=== PATIENT | female | born 1970 | race Asian ===

== ENCOUNTER 2017-05-16 23:15 | Emergency (ER) | payer MEDICAID, OTHER ==
[~2017-05-16] VITALS: Ht 152.4 cm; Wt 65.8 kg
[2017-05-16] MEDS ORDERED: diphenhdrAMINE HCL 50 MG/1 ML VL IV ONE (23:45)
[2017-05-16] MEDS ORDERED: methylPREDNISolone SOD SUCC 125 MG/2 ML VL IV ONE (23:45)
[2017-05-16] MEDS ORDERED: ACETAMINOPHEN 325 MG TAB PO ONE (23:45)
[2017-05-17] LABS: Basophils # (auto) 0.1 uL; Basophils % (auto) 0.4 % (0.0-2.0); Eosinophils # (auto) 0 uL; Hematocrit 43.1 % (36.0-46.0); Lymphocytes # (auto) 1.9 uL; Lymphocytes % (auto) 10.9 % (10.0-50.0); Mean Corpuscular Hemoglobin 31.6 pg (28.0-32.0); Mean Corpuscular Hgb Conc. 34.8 g/dL (32.0-36.0); Mean Corpuscular Volume 90.9 fL (80.0-100.0); Mean Platelet Volume 8.2 fL (6.9-10.8); Monocytes # (auto) 1.2 uL; Monocytes % (auto) 6.8 % (0.0-12.0); Neutrophils # (auto) 13.9 uL; Neutrophils % (auto) 81.9 % (37.0-80.0); Platelet Count (auto) 242 10^3/uL (140-450); Red Cell Distribution Width 12.1 % (11.8-14.3)
[2017-05-17] MEDS ORDERED: ALBUTEROL SULF 2.5 MG/0.5ML(0.5%) NEB SOLN NEB ONE (00:15)
[2017-05-17] MEDS ORDERED: IPRATROPIUM BROM 0.5 MG/2.5ML INH SOL NEB ONE (00:15)
[2017-05-17 00:31] LABS: Anion Gap 12 (5-15); Aspartate Aminotransferase 67 U/L (15-37); BUN/Creatinine Ratio 15.7; Blood Urea Nitrogen 11 mg/dL (7-18); Calcium 9.2 mg/dL (8.5-10.1); Carbon Dioxide 23 mmol/L (21-32); Chloride 101 mmol/L (98-107); GFR African American 116 mL/min; GFR Non-African American 96 mL/min; Glucose 119 mg/dL (74-106); Potassium 3.8 mmol/L (3.5-5.1); Sodium 136 mmol/L (136-145)
[2017-05-17 00:36] LABS: Alkaline Phosphatase 77 U/L (45-117); Bilirubin, Total 1.4 mg/dL (0.2-1.0); Total Protein 8.3 g/dL (6.4-8.2)
[2017-05-17 00:36] LABS: Urine Blood 3+ /uL (Negative); Urine Color PINK (Yellow); Urine Glucose Normal (Normal); Urine Ketone 3+ (Negative); Urine Mucus FEW (None Seen); Urine Nitrite Negative (Negative); Urine RBC 150 /hpf (0 - 4); Urine Squamous Epithelial Cell MOD /hpf (<5)
[2017-05-17 00:42] LABS: Urine Bilirubin POSITIVE (Negative)
[2017-05-17] MEDS ORDERED: EPINEPHrine HCL 1 MG/1 ML AMP SC ONE (02:15)
[2017-05-17] MEDS ORDERED: SODIUM CHLORIDE 0.9% 1,000 ML IV ONE (04:30)
[2017-05-17 04:53] VITALS: BP 100/59
== END 2017-05-17 05:29 | disposition home or self-care (01) ==
LOC: ER 23:28
DX: T78.3XXA Angioneurotic edema, initial encounter (principal); T78.40XA Allergy, unspecified, initial encounter; N39.0 Urinary tract infection, site not specified; E78.5 Hyperlipidemia, unspecified; Z90.49 Acquired absence of other specified parts of digestive tract; Z88.8 Allergy status to other drugs, medicaments and biological substances
CPT/HCPCS: 36415; 71010; 80053; 81001; 83605; 84484; 85025; 94640; 94761; 96372; 96374; 96375; 99285; J0171; J1200; J2930; 96361

== ENCOUNTER 2024-12-11 17:36 | Inpatient (IN) | payer MEDICAID ==
[~2024-12-11] VITALS: Ht 162.6 cm; Wt 70.2 kg
--- NOTE | 2024-12-11 17:50 | ECG ---
[facility] Test Date: 2024-12-11 Test Time: 17:45:58 Pat Name: BELLA BECK Department: ER Room: Gender: F [employer]: ER : 1970 Requested By: HARSH BRANTLEY Order Number: [id number] Reading MD: Dick Osorio Measurements Intervals [place] Rate: 84 P: 46 MN: 150 QRS: 20 QRSD: 96 T: 51 QT: 407 QTc: 482 Interpretive Statements Sinus rhythm Probable left atrial enlargement Electronically Signed On 12-11-2024 21:05:59 PDT by Dick Osorio Please click the below link to view image of tracing.
--- NOTE | 2024-12-11 18:03 | ED.PDOC ---
HPI Comments 54-year-old female with a history of dyslipidemia brought in by family complaining of chest pain intermittently for the past week. Patient states the pain is sharp, localizes it to the retrosternal area, states it radiates to the left shoulder and left neck, and last for a few sec per episode. She denies any associated shortness of breath, nausea, vomiting, diaphoresis or edema. Patient states when the pain began, she contacted her primary physician who advised her to go to the ER, however the pain subsided so she did not go in right away. She states the pain returned yesterday and has been stronger and intermittent since this morning. She denies any pain currently. Chief Complaint: Chest Pain Time Seen by MD: 17:50 Reviewed Notes: Nurses Notes Allergies: Coded Allergies: Atorvastatin (Verified Allergy, Unknown, 05/16/17) Home Meds Reported Medications Colesevelam Hydrochloride (Colesevelam Hydrochlori) 625 Mg Tab, 1 TAB PO BID 12/11/24 Information Source: Patient Mode of Arrival: Ambulatory Past Medical History PAST MEDICAL HISTORY: High Lipids Surgical History: Cholecystectomy STEWARD/STEWARDESS [facility]INING RO[facility] History: No Pertinent STEWARD/STEWARD[facility]INING ROOM History Family History Family History (Other): Mother has pacemaker Social History Smoker: Non-Smoker Alcohol: Denies ETOH Use Drugs: Denies Drug Use Lives In: Home All Other Systems: Reviewed and Negative (Comprehensive systems review obtained and negative except for what is stated in the HPI.) Physical Exam General Appearance: No Apparent Distress, Obese HEENT: Other (Pupils and face symmetric. Moist mucous membranes.) Neck: Full Range of Motion, Normal Inspection Respiratory: Lungs Clear, No Accessory Muscle Use, No Respiratory Distress, Normal Breath Sounds Cardiovascular: No Edema, No JVD, Regular Rate/Rhythm Breast Exam: Deferred Gastrointestinal: Non Tender, Soft Genitalia: Deferred Pelvic: Deferred Rectal: Deferred Extremities: Normal inspection, Normal range of motion, Non-tender, No pedal edema Neurologic: Alert (Oriented x4), Normal Affect, Normal Mood, Other (Ambulatory) Cerebellar Function: NOT DONE Reflexes: NOT DONE Skin: Dry, Normal Color, Warm Lymphatic: NOT DONE EKG EKG : Comments Sinus rhythm, rate 84, normal [place] and QRS intervals, QTC 482, normal axis, normal QRS, anteroseptal T inversion with other nonspecific T change. Was a procedure done? Was a procedure done?: No CP Differential Dx Differential Diagnosis: Angina, Anxiety / Panic Attack, Heart Failure, IN, Pulmonary Embolus Differential Diagnosis: Aortic dissection, Chest Wall Pain, Costochondritis, Esophageal reflux/spasm, Gastritis, Pericarditis, Pneumonia X-Ray, Labs, Meds, VS Vital Signs Date Time Temp Pulse Resp B/P (MAP) Pulse Ox O2 Delivery O2 Flow Rate FiO2 12/11/24 22:13 97.7 81 20 121/68 (85) 97 97.7 12/11/24 20:23 77 16 93 Room Air 12/11/24 20:23 98.5 77 16 106/58 (74) 93 98.5 12/11/24 20:16 106/58 12/11/24 18:30 85 14 99 Room Air* 0 21 12/11/24 18:29 129/60 12/11/24 18:23 98.4 85 14 129/60 (83) 99 98.4 12/11/24 17:58 99.5 84 17 152/69 (96) 96 99.5 12/11/24 17:45 84 Lab Test 12/11/24 19:30 12/11/24 18:51 12/11/24 17:52 Range/Units Urine Color Light-yellow Yellow Urine Clarity Clear Clear Urine pH 6.0 5.0-9.0 Urine Specific [place] 1.020 1.001-1.035 Urine Protein Negative Negative Urine Ketones Negative Negative Urine Blood Negative Negative /uL Urine Nitrite Negative Negative Urine Bilirubin Negative Negative Urine Urobilinogen Normal Negative mg/dL Urine Leukocyte Esterase Negative Negative /uL Urine RBC 1 0 - 4 /hpf Urine Microscopic WBC 3 0-5 /HPF Urine Squamous Epithelial Cells Few <5 /hpf Urine Bacteria Few H None Seen /hpf Urine Glucose Normal Normal mg/dL Urine Test Negative Negative Troponin I High Sensitivity < 3 L < 3 L </=34 ng/L White Blood Count 5.2 4.4-10.8 10^3/uL Red Blood Count 4.76 4.0-5.20 10^6/uL Hemoglobin 15.0 12.2-16.2 g/dL Hematocrit 43.1 36.0-46.0 % Mean Corpuscular Volume 90.6 80.0-100.0 fL Mean Corpuscular Hemoglobin 31.5 28.0-32.0 pg Mean Corpuscular Hemoglobin Concent 34.7 32.0-36.0 g/dL Red Cell Distribution Width 12.3 11.8-14.3 % Platelet Count 276 140-450 10^3/uL Mean Platelet Volume 8.3 6.9-10.8 fL Neutrophils (%) (Auto) 35.8 L 37.0-80.0 % Lymphocytes (%) (Auto) 52.0 H 10.0-50.0 % Monocytes (%) (Auto) 8.9 0.0-12.0 % Eosinophils (%) (Auto) 2.5 0.0-7.0 % Basophils (%) (Auto) 0.8 0.0-2.0 % Neutrophils # (Auto) 1.8 1.6-8.6 10 ^3/uL Lymphocytes # (Auto) 2.7 0.4-5.4 10 ^3/uL Monocytes # (Auto) 0.5 0-1.3 10 ^3/uL Eosinophils # (Auto) 0.1 0-0.8 10 ^3/uL Basophils # (Auto) 0 0-0.2 10 ^3/uL Nucleated Red Blood Cells 0.1 % Sodium Level 138 136-145 mmol/L Potassium Level 3.8 3.5-5.1 mmol/L Chloride Level 100 98-107 mmol/L Carbon Dioxide Level 24 20-31 mmol/L Anion Gap 14 5-15 Blood Urea Nitrogen 10 9-23 mg/dL Creatinine 0.60 0.550-1.02 mg/dL Glomerular Filtration Rate Calc 107 >90 mL/min BUN/Creatinine Ratio 16.7 10.0-20.0 Serum Glucose 120 H 74-106 mg/dL Calcium Level 10.3 8.7-10.4 mg/dL Total Bilirubin 0.6 0.2-1.0 mg/dL Aspartate Amino Transferase (AST) 48 H 13-40 U/L Alanine Aminotransferase (ALT) 85 H 7-40 U/L Alkaline Phosphatase 70 46-116 U/L B-Type Natriuretic Peptide 8.23 0-100 pg/mL Total Protein 7.8 5.7-8.2 g/dL Albumin 5.0 H 3.2-4.8 g/dL Current Medications Medications (Trade) Dose Ordered Sig/Christine Route Start Time Stop Time Status Last Admin Aspirin 325 mg ONCE ONCE PO 12/11/24 18:00 12/11/24 18:01 DC 12/11/24 18:29 Nitroglycerin (Nitrodur 0.2MG/ Hr) 1 patch ONCE ONCE TD 12/11/24 18:00 12/11/24 18:01 DC 12/11/24 18:29 PROCEDURE(s): CXRP - CHEST PORTABLE REASON: cp ORDER NUMBER(s): [id number], ACCESSION NUMBER(s): [id number] CHEST RADIOGRAPH Indication: cp Technique: Single frontal view of the chest was obtained Comparison: None FINDINGS: Lines and Tubes: None Lungs: Clear Pleura: No effusion. No pneumothorax. Cardiomediastinal contours: Unremarkable Bones: Unremarkable IMPRESSION: Clear lungs. X-Ray, Labs, Meds, VS Comment 54-year-old female with a history of dyslipidemia presenting with chest pain intermittently for a week Vitals remarkable for elevated blood pressure Exam unremarkable Rhythm strip independently interpreted by me: Sinus rhythm, rate 84, no ectopy. Chest x-ray IMPRESSION: Clear lungs. CBC, CMP, BNP, 2 serial troponins and UA unremarkable Patient treated with the following in the ED: Aspirin 325 mg p.o., nitro patch 0.2 mg chest wall On re-evaluation, patient has not had further chest pain in the ED. Vitals were stable. Heart score is 5. Plan is to admit the patient for ongoing serial troponins and Cardiology evaluation. Time of 1ST Reevaluation: 19:00 Reevaluation 1ST: Improved Patient Education/Counseling: Diagnosis, Treatment, Need For Follow Up Family Education/Counseling: No Family Present Departure 1 Departure Time of Disposition: 20:00 Impression: Primary Impression: Chest pain with high risk for cardiac etiology Disposition: 09 ADMITTED INPATIENT Admit to: Tele Condition: Guarded Critical Care Note Critical Care Time?: No Stability Stability form required: No Heart Score Heart Score: Heart Score Response (Comments) Value History Highly Suspicious 2 EKG Repolarization Disturb 1 Age 45-64 1 Risk Factors 1 or 2 risk factors 1 Troponin Normal limit 0 Total 5 CHEYENNE MARION MD December 11, 2024 18:03
[2024-12-11 18:09] LABS: Basophils # (auto) 0 10 ^3/uL (0-0.2); Basophils % (auto) 0.8 % (0.0-2.0); Eosinophils # (auto) 0.1 10 ^3/uL (0-0.8); Eosinophils % (auto) 2.5 % (0.0-7.0); Hematocrit 43.1 % (36.0-46.0); Lymphocytes # (auto) 2.7 10 ^3/uL (0.4-5.4); Mean Corpuscular Hemoglobin 31.5 pg (28.0-32.0); Mean Corpuscular Hgb Conc. 34.7 g/dL (32.0-36.0); Mean Corpuscular Volume 90.6 fL (80.0-100.0); Monocytes # (auto) 0.5 10 ^3/uL (0-1.3); Monocytes % (auto) 8.9 % (0.0-12.0); Neutrophils # (auto) 1.8 10 ^3/uL (1.6-8.6); Neutrophils % (auto) 35.8 % (37.0-80.0); Nucleated Red Blood Cells % 0.1 %; Platelet Count (auto) 276 10^3/uL (140-450); Red Blood Cells 4.76 10^6/uL (4.0-5.20); Red Cell Distribution Width 12.3 % (11.8-14.3); White Blood Cell 5.2 10^3/uL (4.4-10.8)
[2024-12-11 18:24] LABS: Alkaline Phosphatase 70 U/L (46-116); Anion Gap 14 (5-15); BUN/Creatinine Ratio 16.7 (10.0-20.0); Blood Urea Nitrogen 10 mg/dL (9-23); Calcium 10.3 mg/dL (8.7-10.4); Carbon Dioxide 24 mmol/L (20-31); Chloride 100 mmol/L (98-107); Potassium 3.8 mmol/L (3.5-5.1); Sodium 138 mmol/L (136-145); Total Protein 7.8 g/dL (5.7-8.2)
[2024-12-11 18:25] LABS: Alanine Aminotransferase 85 U/L (7-40); Aspartate Aminotransferase 48 U/L (13-40); Bilirubin, Total 0.6 mg/dL (0.2-1.0); Glucose 120 mg/dL (74-106)
[2024-12-11] MEDS: NITROGLYCERIN 0.2MG/HR TOPICAL PATCH TD ONE (18:29)
[2024-12-11] MEDS: ASPirin 325 MG TAB PO ONE (18:29)
[2024-12-11 18:30] VITALS: PULSE 85; RESP 14; O2SAT 99
[2024-12-11 19:56] LABS: Urine Bacteria FEW /hpf (None Seen); Urine Blood Negative /uL (Negative); Urine Clarity Clear (Clear); Urine Color Light-Yellow (Yellow); Urine Protein, UAD Negative (Negative); Urine Squamous Epithelial Cell FEW /hpf (<5); Urine Urobilinogen Normal (Negative); Urine WBC 3 /HPF (0-5)
[2024-12-11] MEDS: SODIUM CHLORIDE 0.9% 1,000 ML IV SCH (21:30)
[2024-12-11] MEDS ORDERED: ONDANSETRON HCL 4 MG/2 ML VIAL IV PRN (21:30)
[2024-12-11] MEDS ORDERED: HYDROcodone-ACET 5/325MG TAB PO PRN (21:30)
[2024-12-11] MEDS ORDERED: DOCUSATE SOD 100 MG CAP PO PRN (21:30)
--- NOTE | 2024-12-11 22:13 | DVH ---
CHEST RADIOGRAPH Indication: cp Technique: Single frontal view of the chest was obtained Comparison: None FINDINGS: Lines and Tubes: None Lungs: Clear Pleura: No effusion. No pneumothorax. Cardiomediastinal contours: Unremarkable Bones: Unremarkable IMPRESSION: Clear lungs.
--- NOTE | 2024-12-11 22:39 | DVHHP2 ---
History of Present Illness Reason for Visit: Chest pain History of Present Illness The patient is a 54-year-old female with past medical history of hyperlipidemia who presented to [facility] ED with complaint of chest pain. Patient reports symptoms progressively get worse with localized substernal chest pain, sharp in nature, rating 7/10 numeric scale, associated shortness of breath, nausea, vomiting, diaphoresis, getting worse that prompted this visit. Patient was seen and evaluated in the ED, laboratory data shows WBC 5.2, platelets 276, sodium 138, potassium 3.8, BUN 10, creatinine 0.60, glucose 120, AST 48, ALT 85, BNP 8.23, albumin 5.0, troponin < 3. Please see medication orders section in the computer. On my assessment, patient denied chest pain at this moment, no headache, no dizziness, currently on oxygen, no nausea or vomiting at this moment, no fever, no chills. Patient was admitted for further evaluation and medical management. Past Medical History High Lipids Past Surgical History Cholecystectomy Family History Reviewed, noncontributory to the management of this case. Past Social History The patient lives at home, denies smoking, alcohol or illicit drugs abuse. Review of Systems Constitutional: No: Fever, Chills, Sweats, Weakness, Malaise, Other Eyes: No: Pain, Vision change, Conjunctivae inflammation, Eyelid inflammation, Other, Redness ENT: No: Ear pain, Ear discharge, Nose pain, Nose discharge, Nose congestion, Mouth pain, Mouth swelling, Throat pain, Throat swelling, Other Respiratory: Shortness of breath; No: Cough, Dry, SOB with excertion, Wheezing, Hemoptysis, Pleuritic Pain, Sputum, Wheezing, Other Cardiovascular: Chest Pain; No: Palpitations, Orthopnea, Paroxysmal Noc. Dyspnea, Edema, Lt Headedness, Other Gastrointestinal: Nausea, Vomiting; No: Abdominal Pain, Diarrhea, Constipation, Melena, Hematochezia, Other Genitourinary: No Dysuria, No Frequency, No Incontinence, No Hematuria, No Retention, No Other Musculoskeletal: No: other, neck pain, shoulder pain, arm pain, back pain, hand pain, leg pain, foot pain Skin: No: Rash, Lesions, Jaundice, Bruising, Other Neurological: No: Weakness, Numbness, Incoordination, Change in speech, Confusion, Seizures, Other Allergies: Coded Allergies: Atorvastatin (Verified Allergy, Unknown, 05/16/17) Medications Current Medications Medications Dose Ordered Sig/Christine Route Start Time Stop Time Status Last Admin Dose Admin Sodium Chloride 1,000 ml @ 60 mls/hr [id number] IV 12/11/24 21:30 Acetaminophen/ Hydrocodone Bitart 1 tab Q4HP PRN PO 12/11/24 21:30 Ondansetron HCl 4 mg Q4HP PRN IV 12/11/24 21:30 Docusate Sodium 100 mg BIDPRN PRN PO 12/11/24 21:30 Acetaminophen 650 mg Q6HP PRN PO 12/11/24 21:30 Exam Vital Signs Vital Signs Date Time Temp Pulse Resp B/P (MAP) Pulse Ox O2 Delivery O2 Flow Rate FiO2 12/11/24 22:13 97.7 81 20 121/68 (85) 97 97.7 12/11/24 20:23 Room Air 12/11/24 18:30 0 21 General Appearance: Alert, Oriented X3, Cooperative, No acute distress HEENT: Atraumatic, PERRLA, EOMI, Mucous membr. moist/pink Respiratory: Clear to auscultation, Normal air movement Cardiovascular: Regular rate, Normal S1, Normal S2, No murmurs Abdominal: Normal bowel sounds, Soft, No tenderness, No hepatospenomegaly, No masses Extremities: No clubbing, No cyanosis, No edema, Normal pulses, No tenderness /swelling Skin: No rashes, No breakdown, No significant lesion Neuro: Normal gait, Normal speech, Strength at 5/5 X4 ext, Normal tone, Sensation intact, Cranial nerves 3-12 NL, Reflexes 2+ Psych/Mental Status: Mental status NL, Mood NL Labs/Xrays Labs Test 12/11/24 19:30 12/11/24 18:51 12/11/24 17:52 Range/Units Urine Color Light-yellow Yellow Urine Clarity Clear Clear Urine pH 6.0 5.0-9.0 Urine Specific [place] 1.020 1.001-1.035 Urine Protein Negative Negative Urine Ketones Negative Negative Urine Blood Negative Negative /uL Urine Nitrite Negative Negative Urine Bilirubin Negative Negative Urine Urobilinogen Normal Negative mg/dL Urine Leukocyte Esterase Negative Negative /uL Urine RBC 1 0 - 4 /hpf Urine Microscopic WBC 3 0-5 /HPF Urine Squamous Epithelial Cells Few <5 /hpf Urine Bacteria Few H None Seen /hpf Urine Glucose Normal Normal mg/dL Urine Test Negative Negative Troponin I High Sensitivity < 3 L </=34 ng/L White Blood Count 5.2 4.4-10.8 10^3/uL Red Blood Count 4.76 4.0-5.20 10^6/uL Hemoglobin 15.0 12.2-16.2 g/dL Hematocrit 43.1 36.0-46.0 % Mean Corpuscular Volume 90.6 80.0-100.0 fL Mean Corpuscular Hemoglobin 31.5 28.0-32.0 pg Mean Corpuscular Hemoglobin Concent 34.7 32.0-36.0 g/dL Red Cell Distribution Width 12.3 11.8-14.3 % Platelet Count 276 140-450 10^3/uL Mean Platelet Volume 8.3 6.9-10.8 fL Neutrophils (%) (Auto) 35.8 L 37.0-80.0 % Lymphocytes (%) (Auto) 52.0 H 10.0-50.0 % Monocytes (%) (Auto) 8.9 0.0-12.0 % Eosinophils (%) (Auto) 2.5 0.0-7.0 % Basophils (%) (Auto) 0.8 0.0-2.0 % Neutrophils # (Auto) 1.8 1.6-8.6 10 ^3/uL Lymphocytes # (Auto) 2.7 0.4-5.4 10 ^3/uL Monocytes # (Auto) 0.5 0-1.3 10 ^3/uL Eosinophils # (Auto) 0.1 0-0.8 10 ^3/uL Basophils # (Auto) 0 0-0.2 10 ^3/uL Nucleated Red Blood Cells 0.1 % Sodium Level 138 136-145 mmol/L Potassium Level 3.8 3.5-5.1 mmol/L Chloride Level 100 98-107 mmol/L Carbon Dioxide Level 24 20-31 mmol/L Anion Gap 14 5-15 Blood Urea Nitrogen 10 9-23 mg/dL Creatinine 0.60 0.550-1.02 mg/dL Glomerular Filtration Rate Calc 107 >90 mL/min BUN/Creatinine Ratio 16.7 10.0-20.0 Serum Glucose 120 H 74-106 mg/dL Calcium Level 10.3 8.7-10.4 mg/dL Total Bilirubin 0.6 0.2-1.0 mg/dL Aspartate Amino Transferase (AST) 48 H 13-40 U/L Alanine Aminotransferase (ALT) 85 H 7-40 U/L Alkaline Phosphatase 70 46-116 U/L B-Type Natriuretic Peptide 8.23 0-100 pg/mL Total Protein 7.8 5.7-8.2 g/dL Albumin 5.0 H 3.2-4.8 g/dL PATIENT: BELLA BECK ACCT: [id number] UNIT: [id number] : 1970 LOC: ER ROOM / BED: / AGE / SEX: 54 / F ADM STATUS: REG ER SERVICE [id number] ORDERING PHYSICIAN: CHEYENNE MARION MD PROCEDURE(s): CXRP - CHEST PORTABLE REASON: cp ORDER NUMBER(s): [id number], ACCESSION NUMBER(s): [id number] CHEST RADIOGRAPH Indication: cp Technique: Single frontal view of the chest was obtained Comparison: None FINDINGS: Lines and Tubes: None Lungs: Clear Pleura: No effusion. No pneumothorax. Cardiomediastinal contours: Unremarkable Bones: Unremarkable IMPRESSION: Clear lungs. Assessment/Plan Assessment/Plan Chest pain with high risk for cardiac etiology Elevated liver enzymes Plan 1. Admit to telemetry unit 2. Breathing treatment 3. Pain control management 4. Management of fluids and electrolytes 5. Consultation for hospitalist 6. Diagnostic tests chest x-ray 7. DVT prophylaxis-on SCDs 8. Repeat labs CBC, CMP in a.m. 9. Continue with current medical management 10. Treatment plan discussed with patient and RN. Patient verbalized understanding. Plan discussed with: Patient, Other (RN) My Orders Orders - KEYANNA FRIEND DNP Procedure Category Date Status Time Allergies ELVER 12/11/24 In Process 21:19 Code Status CODE 12/11/24 Transmitted 21:19 Sodium Chloride 0.9% PHA 12/11/24 In Process 21:30 Oxygen Per Hour RT 12/11/24 Transmitted 21:19 Hydrocodone-Acet PHA 12/11/24 In Process 5/325mg Tab ([place] 21:30 Ondansetron Hcl PHA 12/11/24 In Process (Zofran) 21:30 Docusate Sodium PHA 12/11/24 In Process Capsule (Colace 21:30 Complete Blood Count LAB 12/12/24 Verified 04:00 Comprehensive LAB 12/12/24 Verified Metabolic Panel 04:00 Cardiac DIET 12/12/24 Transmitted Diet-2gna,Lofat,Lochol Breakfast Condition: Serious ELVER 12/11/24 In Process 21:19 Acetaminophen Tablet PHA 12/11/24 In Process (Tylenol Tablet) 21:30 Bedrest With Bathroom ELVER 12/11/24 In Process Privileg 21:19 Sequential ELVER 12/11/24 In Process Compression Device Admit ADMIT 12/11/24 Verified 22:[address] [facility] 12/11/24 Verified Sublingual (Ntrostat 22:45 Morphine Sulfate PHA 12/11/24 Verified Injection 22:45 Stat Ekg For Chest [facility] 12/11/24 Verified Pain 22:38 Notify Md Of Changes [facility] 12/11/24 Verified From Base 22:38 Work Order Detailer For [facility] 12/11/24 Verified 24 Hours 22:38 Emergency Dysrhythmia [facility] 12/11/24 Verified Protocol 22:38 Rhythm Strips Once [facility] 12/11/24 Verified Every Shift 22:38 Oxygen By Nasal RT 12/11/24 Verified Cannula 22:38 Problem List: (1) Chest pain with high risk for cardiac etiology (2) Elevated liver enzymes Date of Service: December 11, 2024 Billing Provider: KEYANNA FRIEND DNP Common Visit Codes: [id number] INP/OBS CARE (HIGH) KEYANNA FRIEND DNP December 11, 2024 22:39
[2024-12-11] MEDS ORDERED: NITROGLYCERIN 0.4 MG SL TAB SL PRN (22:45)
[2024-12-11] MEDS ORDERED: MORPHINE SULFATE INJ 2 MG/ml SYRG IV PRN (22:45)
[2024-12-11] MEDS ORDERED: COLE625T12 PO (22:50)
[2024-12-11 23:00] VITALS: PULSE 73; RESP 15; O2SAT 95
[2024-12-12 02:17] VITALS: BP 119/67; PULSE 67; PULSE 68; RESP 18; TEMP 97.6; O2SAT 97
[2024-12-12] MEDS: ACETAMINOPHEN 325 MG TAB PO PRN (02:41)
[2024-12-12 05:00] VITALS: BP 120/65; PULSE 73; RESP 18; TEMP 97.5; O2SAT 96
[2024-12-12 08:00] VITALS: PULSE 70
[2024-12-12] MEDS ORDERED: METH50006 PO (08:00)
[2024-12-12] MEDS ORDERED: CHOL100067 PO (08:04)
[2024-12-12] MEDS ORDERED: MAGN200T PO (08:04)
[2024-12-12] MEDS ORDERED: OMEG-20 PO (08:04)
[2024-12-12] MEDS ORDERED: [UNRECOGNIZED DRUG - CODE] PO (08:05)
[2024-12-12 08:50] VITALS: BP_SYST 120; BP_SYST 154; BP_DIAS 78; BP_DIAS 94; PULSE 77; PULSE 92; RESP 20; TEMP 97.9; TEMP 98.6; O2SAT 95; O2SAT 96
[2024-12-12 09:17] LABS: Basophils # (auto) 0 10 ^3/uL (0-0.2); Basophils % (auto) 0.5 % (0.0-2.0); Eosinophils # (auto) 0.1 10 ^3/uL (0-0.8); Eosinophils % (auto) 2.6 % (0.0-7.0); Hematocrit 41.3 % (36.0-46.0); Hemoglobin 14.5 g/dL (12.2-16.2); Lymphocytes # (auto) 2.3 10 ^3/uL (0.4-5.4); Lymphocytes % (auto) 42.8 % (10.0-50.0); Mean Corpuscular Hemoglobin 31.8 pg (28.0-32.0); Mean Corpuscular Hgb Conc. 35.1 g/dL (32.0-36.0); Mean Corpuscular Volume 90.5 fL (80.0-100.0); Monocytes # (auto) 0.5 10 ^3/uL (0-1.3); Monocytes % (auto) 9.7 % (0.0-12.0); Neutrophils # (auto) 2.4 10 ^3/uL (1.6-8.6); Neutrophils % (auto) 44.4 % (37.0-80.0); Platelet Count (auto) 267 10^3/uL (140-450); Red Blood Cells 4.56 10^6/uL (4.0-5.20); Red Cell Distribution Width 12.5 % (11.8-14.3); White Blood Cell 5.5 10^3/uL (4.4-10.8)
[2024-12-12 09:33] LABS: Albumin 4.7 g/dL (3.2-4.8); Alkaline Phosphatase 68 U/L (46-116); Anion Gap 12 (5-15); BUN/Creatinine Ratio 17.9 (10.0-20.0); Blood Urea Nitrogen 10 mg/dL (9-23); Calcium 10.4 mg/dL (8.7-10.4); Carbon Dioxide 24 mmol/L (20-31); Chloride 102 mmol/L (98-107); Glucose 100 mg/dL (74-106); Sodium 138 mmol/L (136-145); Total Protein 7.2 g/dL (5.7-8.2)
[2024-12-12 09:40] LABS: Alanine Aminotransferase 90 U/L (7-40); Aspartate Aminotransferase 57 U/L (13-40)
[2024-12-12 12:43] VITALS: BP 109/67; PULSE 80; RESP 20; TEMP 98.9; O2SAT 92
--- NOTE | 2024-12-12 14:11 | DVHPN2 ---
Subjective 54-year-old female with a history of dyslipidemia comes with a chief complaint of chest pain in the left chest and left neck and left shoulder area The troponins are negative The EKG is negative Changes from previous H/P or p: Changes (in which she had) Eyes: No Pain, No Vision change, No Conjunctivae inflammation, No Eyelid inflammation, No Other, No Redness ENT: No Ear pain, No Ear discharge, No Nose pain, No Nose discharge, No Nose congestion, No Mouth pain, No Mouth swelling, No Throat pain, No Throat swelling, No Other Cardiovascular: Chest Pain; No Palpitations, No Orthopnea, No Paroxysmal Noc. Dyspnea, No Edema, No Lt Headedness, No Other Respiratory: No Cough, No Dry; Shortness of breath; No SOB with excertion, No Wheezing, No Hemoptysis, No Pleuritic Pain, No Sputum, No Other Gastrointestinal: Nausea, Vomiting; No Abdominal Pain, No Diarrhea, No Constipation, No Melena, No Hematochezia, No Other Genitourinary: No Dysuria, No Frequency, No Incontinence, No Hematuria, No Retention, No Other Musculoskeletal: No other, No neck pain, No shoulder pain, No arm pain, No back pain, No hand pain, No leg pain, No foot pain Skin: No Rash, No Lesions, No Jaundice, No Bruising, No Other Objective Vitals Vital Signs Date Time Temp Pulse Resp B/P (MAP) Pulse Ox O2 Delivery O2 Flow Rate FiO2 12/12/24 12:43 98.9 80 20 109/67 (81) 92 98.9 12/12/24 08:30 Room Air* 0 21 Intake/Output Intake and Output 12/12/24 07:00 Intake Total 75 ml Balance 75 ml Intake Oral 75 ml # Voids 1 General Appearance: Alert, Oriented X3, Cooperative, No acute distress Lungs: Clear to auscultation, Normal air movement Cardiovascular: Regular rate, Normal S1, Normal S2, No murmurs Abdomen: Normal bowel sounds, Soft, No tenderness Extremities: No edema Medications Current Medications Medications Dose Ordered Sig/Christine Route Start Time Stop Time Status Last Admin Dose Admin Sodium Chloride 1,000 ml @ 60 mls/hr [id number] IV 12/11/24 21:30 Acetaminophen/ Hydrocodone Bitart 1 tab Q4HP PRN PO 12/11/24 21:30 Ondansetron HCl 4 mg Q4HP PRN IV 12/11/24 21:30 Docusate Sodium 100 mg BIDPRN PRN PO 12/11/24 21:30 Acetaminophen 650 mg Q6HP PRN PO 12/11/24 21:30 12/12/24 12:07 650 MG Nitroglycerin 0.4 mg Q5MINP PRN SL 12/11/24 22:45 Morphine Sulfate 2 mg Q30M PRN IV 12/11/24 22:45 Laboratory Results Laboratory Tests 12/12/24 08:02 Chemistry Test 12/11/24 17:52 12/12/24 08:02 Albumin 5.0 g/dL (3.2-4.8) H 4.7 g/dL (3.2-4.8) Calcium Level 10.3 mg/dL (8.7-10.4) 10.4 mg/dL (8.7-10.4) Total Protein 7.8 g/dL (5.7-8.2) 7.2 g/dL (5.7-8.2) Cardiac Markers Test 12/11/24 17:52 B-Type Natriuretic Peptide 8.23 pg/mL (0-100) LFT Test 12/11/24 17:52 12/12/24 08:02 Alanine Aminotransferase (ALT) 85 U/L (7-40) H 90 U/L (7-40) H Alkaline Phosphatase 70 U/L (46-116) 68 U/L (46-116) Aspartate Amino Transferase (AST) 48 U/L (13-40) H 57 U/L (13-40) H Total Bilirubin 0.6 mg/dL (0.2-1.0) 1.0 mg/dL (0.2-1.0) Urinalysis Test 12/11/24 19:30 Urine Color Light-yellow (Yellow) Urine Clarity Clear (Clear) Urine pH 6.0 (5.0-9.0) Urine Specific [place] 1.020 (1.001-1.035) Urine Protein Negative (Negative) Urine Ketones Negative (Negative) Urine Blood Negative /uL (Negative) Urine Nitrite Negative (Negative) Urine Bilirubin Negative (Negative) Urine Urobilinogen Normal mg/dL (Negative) Urine Leukocyte Esterase Negative /uL (Negative) Urine RBC 1 /hpf (0 - 4) Urine Microscopic WBC 3 /HPF (0-5) Urine Squamous Epithelial Cells Few /hpf (<5) Urine Bacteria Few /hpf (None Seen) H Urine Glucose Normal mg/dL (Normal) Urine Test Negative (Negative) Assessment/Plan Assessment/Plan Chest pain, most likely musculoskeletal History of mixed hyperlipidemia Plan Cardiology consultation Echocardiogram Troponins are negative 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
[2024-12-12 17:05] VITALS: BP 104/62; PULSE 86; RESP 20; TEMP 98.5; O2SAT 95
--- NOTE | 2024-12-12 17:19 | DVHINCON2 ---
Date Seen: December 12, [address] Carson Reason for Consultation Chest pain History of Present Illness This 54-year-old female presents in the ED with a chief complaint of chest pain. The patient reports chest pain started about a week ago and has progressed leading to ER visit. The patient reports waking up with a intermittent sharp chest pain, radiating to the left arm, shoulder, and neck. In the emergency department, the patient underwent a 12 lead ECG revealing normal sinus rhythm with no signs of acute ischemia, serial troponins are negative, and unremarkable chest x-ray. 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 Alexis in two weeks. Upon assessment, the patient denies dizziness, diaphoresis, chest pain, palpitations, shortness of breath, or dyspnea. Denies history of ID or CHF. Significant past medical history of hyperlipidemia and breast augmentation. Past Medical History As stated in HPI Past Surgical History Breast augmentation Family History: Patient reports no known family medical history. Family History Reviewed, non-contributory to the management of this case. Social History The patient lives at home, denies smoking, alcohol or illicit drugs abuse. Allergies: Coded Allergies: Atorvastatin (Verified Allergy, Unknown, 05/16/17) Home Meds Reported Medications Colesevelam Hcl (Welchol) 3.75 Gm Darell, 2 TAB PO DAILY, #90 PACK 1 Refill 12/12/24 Magnesium (Magnesium) 200 Mg Tab, 240 MG PO DAILY, TAB 12/12/24 Cholecalciferol (D3) 250 Mcg Cap, 125 MCG PO DAILY, CAP 12/12/24 [place]-3 Fatty Acids (FISH OIL) 1,000 Mg Cap, 1250 MG PO DAILY, CAP 12/12/24 Mecobalamin (B12) 5,000 Mcg Sub, 5000 MCG PO DAILY, INJ 12/12/24 Current Medications Current Medications Medications (Trade) Dose Ordered Sig/Christine Route PRN Reason Start Time Stop Time Status Last Admin Sodium Chloride 1,000 ml @ 60 mls/hr [id number] IV 12/11/24 21:30 12/12/24 14:09 DC Acetaminophen/ Hydrocodone Bitart ([place] 5/325MG Tab) 1 tab Q4HP PRN PO MODERATE PAIN (4-6 PAIN SCALE) 12/11/24 21:30 Ondansetron HCl (Zofran) 4 mg Q4HP PRN IV NAUSEA / VOMITING 12/11/24 21:30 Docusate Sodium (Colace Capsule) 100 mg BIDPRN PRN PO FOR CONSTIPATION 12/11/24 21:30 Acetaminophen (Tylenol Tablet) 650 mg Q6HP PRN PO PAIN SCALE 1-3 OR TEMP>100.4 12/11/24 21:30 12/12/24 12:07 Nitroglycerin (Ntrostat Sublingual) 0.4 mg Q5MINP PRN SL FOR CHEST PAIN 12/11/24 22:45 Morphine Sulfate 2 mg Q30M PRN IV FOR CHEST PAIN 12/11/24 22:45 Aspirin 81 mg DAILY PO 12/13/24 10:00 Review of Systems Constitutional: No symptom reported Ears, Nose, & Throat: No symptom reported Eyes: No symptom reported Neurological: No symptoms reported Pulmonary/Respiratory: No symptom reported Cardiovascular: Chest pain Gastrointestinal: No symptom reported Genitourinary: No symptom reported Musculoskeletal: No symptom reported Skin: No symptom reported Psychiatric: No symptom reported Endocrine: No symptom reported Hematologic/Lymphatic: No symptom reported Vital Signs Vital Signs Date Time Temp Pulse Resp B/P (MAP) Pulse Ox O2 Delivery O2 Flow Rate FiO2 12/12/24 17:05 98.5 86 20 104/62 (76) 95 98.5 12/12/24 08:30 Room Air* 0 21 Physical Exam INITIAL VITAL SIGNS: Reviewed by me GENERAL: Alert and interactive. No acute distress. HEAD: Head is normocephalic and atraumatic. EYES: EOMI, PERRL. No scleral icterus. No conjunctival injection. ENT: Moist mucous membranes. NECK: Supple, No masses, Full range of motion. RESPIRATORY: No tachypnea. Clear breath sounds bilaterally. No wheezing, rales, rhonchi. CV: Regular rate and rhythm. No murmurs, no dyspnea, no edema GI/: Active bowel sounds, soft, nondistended, nontender. No guarding. No rebound. No masses. No CVA tenderness. INTEGUMENTARY: Warm and dry. No obvious rashes. NEUROLOGIC: Alert and oriented. Face is symmetric. Speech is normal. Moves all extremities equally. Labs/Diagnostic Data Labs Test 12/12/24 08:02 12/11/24 19:30 12/11/24 18:51 12/11/24 17:52 Range/Units White Blood Count 5.5 4.4-10.8 10^3/uL Red Blood Count 4.56 4.0-5.20 10^6/uL Hemoglobin 14.5 12.2-16.2 g/dL Hematocrit 41.3 36.0-46.0 % Mean Corpuscular Volume 90.5 80.0-100.0 fL Mean Corpuscular Hemoglobin 31.8 28.0-32.0 pg Mean Corpuscular Hemoglobin Concent 35.1 32.0-36.0 g/dL Red Cell Distribution Width 12.5 11.8-14.3 % Platelet Count 267 140-450 10^3/uL Mean Platelet Volume 8.6 6.9-10.8 fL Neutrophils (%) (Auto) 44.4 37.0-80.0 % Lymphocytes (%) (Auto) 42.8 10.0-50.0 % Monocytes (%) (Auto) 9.7 0.0-12.0 % Eosinophils (%) (Auto) 2.6 0.0-7.0 % Basophils (%) (Auto) 0.5 0.0-2.0 % Neutrophils # (Auto) 2.4 1.6-8.6 10 ^3/uL Lymphocytes # (Auto) 2.3 0.4-5.4 10 ^3/uL Monocytes # (Auto) 0.5 0-1.3 10 ^3/uL Eosinophils # (Auto) 0.1 0-0.8 10 ^3/uL Basophils # (Auto) 0 0-0.2 10 ^3/uL Nucleated Red Blood Cells 0.0 % Sodium Level 138 136-145 mmol/L Potassium Level 4.0 3.5-5.1 mmol/L Chloride Level 102 98-107 mmol/L Carbon Dioxide Level 24 20-31 mmol/L Anion Gap 12 5-15 Blood Urea Nitrogen 10 9-23 mg/dL Creatinine 0.56 0.550-1.02 mg/dL Glomerular Filtration Rate Calc 109 >90 mL/min BUN/Creatinine Ratio 17.9 10.0-20.0 Serum Glucose 100 74-106 mg/dL Calcium Level 10.4 8.7-10.4 mg/dL Total Bilirubin 1.0 0.2-1.0 mg/dL Aspartate Amino Transferase (AST) 57 H 13-40 U/L Alanine Aminotransferase (ALT) 90 H 7-40 U/L Alkaline Phosphatase 68 46-116 U/L Total Protein 7.2 5.7-8.2 g/dL Albumin 4.7 3.2-4.8 g/dL Urine Color Light-yellow Yellow Urine Clarity Clear Clear Urine pH 6.0 5.0-9.0 Urine Specific [place] 1.020 1.001-1.035 Urine Protein Negative Negative Urine Ketones Negative Negative Urine Blood Negative Negative /uL Urine Nitrite Negative Negative Urine Bilirubin Negative Negative Urine Urobilinogen Normal Negative mg/dL Urine Leukocyte Esterase Negative Negative /uL Urine RBC 1 0 - 4 /hpf Urine Microscopic WBC 3 0-5 /HPF Urine Squamous Epithelial Cells Few <5 /hpf Urine Bacteria Few H None Seen /hpf Urine Glucose Normal Normal mg/dL Urine Test Negative Negative Troponin I High Sensitivity < 3 L </=34 ng/L B-Type Natriuretic Peptide 8.23 0-100 pg/mL PROCEDURE(s): CXRP - CHEST PORTABLE REASON: cp ORDER NUMBER(s): [id number], ACCESSION NUMBER(s): [id number] CHEST RADIOGRAPH Indication: cp Technique: Single frontal view of the chest was obtained Comparison: None FINDINGS: Lines and Tubes: None Lungs: Clear Pleura: No effusion. No pneumothorax. Cardiomediastinal contours: Unremarkable Bones: Unremarkable IMPRESSION: Clear lungs. Assessment Acute chest pain to rule out ACS Hyperlipidemia Plan/Recommendation Plan/Recommendation (Dr. Hernandez ): Echocardiogram with pending results. The patient is offered to undergone stress test during this stay but the patient refused. Patient states that she will follow-up with her toll test desk worker as scheduled and will return to ER for new onset chest pain as needed. This medical document was created using an electronic medical record system with voice recognition software and computerized dictation system. Although this document has been carefully reviewed, there might still be some phonetic and typographical errors. Occasional wrong-word or ``sound-alike substitutions may have occurred due to the inherent limitations of voice recognition software. These areas are purely typographical due to imperfections of the software programs and do not reflect any compromise in the patient's medical care. Please read the chart carefully and recognize, using context, where these substitutions have occurred. Plan discussed with: Patient Plan discussed with: Patient NYHA Physical activity limitations: NA Date of Service: December 12, 2024 Billing Provider: JENNIFER HERNANDEZ Sr., MD Cardiology Common Codes: CONSULT ONLY Cardiology Consultation Codes: [id number] CONSULT <45MIN CLAUDIA ORTIZ CLOTH EXAMINER December 12, 2024 17:19
[2024-12-12] MEDS: ASPirin 81 mg TAB PO ONE (17:24)
[2024-12-13] MEDS ORDERED: ASPirin 81 mg TAB PO SCH (10:00)
== END 2024-12-12 17:32 | disposition left against medical advice (07) | DRG 198 ==
LOC: ER 17:38 → OVERFLOW 22:38 → TELE-EAST 12-12 02:15
PROVIDERS: ADMIT Nurse Practitioner Family; ATTEND Nurse Practitioner Family
DX: I24.9 Acute ischemic heart disease, unspecified (principal); E78.2 Mixed hyperlipidemia; R74.8 Abnormal levels of other serum enzymes; Z53.29 Procedure and treatment not carried out because of patient's decision for other reasons; Z79.899 Other long term (current) drug therapy; Z88.8 Allergy status to other drugs, medicaments and biological substances; Z90.49 Acquired absence of other specified parts of digestive tract
CPT/HCPCS: 36415; 71045; 80053; 81001; 81025; 83880; 84484; 85025; 93005; 93306; G0378